=== PATIENT | female | born 2000 | race Hispanic/Latino ===

== ENCOUNTER 2022-05-17 07:47 | Inpatient (IN) | payer MEDICAID ==
[~2022-05-17] VITALS: Ht 157.5 cm; Wt 88.5 kg
[2022-05-17 09:25] LABS: HEMATOCRIT 33.4 % (36-48); MEAN CORPUSCULAR HGB CONC 31.7 g/dL (32.0-36.0); MEAN CORPUSCULAR VOLUME 69.4 fL (79-99); PLATELET COUNT (AUTO) 437 K/uL (130-400); RED BLOOD CELL COUNT(AUTO) 4.81 MIL/uL (4.00-5.50)
[2022-05-17] MEDS ORDERED: LACTATED RINGERS 1000ML 1,000 ML IV PRN (09:30)
[2022-05-17] MEDS ORDERED: PROMETHAZINE HCL 25 MG/ML 1ML AMPULE IM PRN (09:30)
[2022-05-17] MEDS ORDERED: MEPERIDINE-PF 50 MG/ML SYG IVP PRN (09:30)
[2022-05-17] MEDS ORDERED: OXYTOCIN-LR 20 UNITS/1000 ML 1,000 ML IV SCH ×3 (09:30→18:30)
[2022-05-17 11:59] LABS: RAPID PLASMA REAGIN NONREACTIVE (NONREACTIVE)
[2022-05-17 12:07] LABS: APPEARANCE,URINE CLEAR (CLEAR); BILIRUBIN,URINE NEGATIVE (NEGATIVE); COLOR,URINE COLORLESS (YELLOW); GLUCOSE, URINE (UA) NEGATIVE (NEGATIVE); KETONES,URINE NEGATIVE (NEGATIVE); LEUKOCYTE ESTERASE ,URINE 75 Leu/uL (NEGATIVE); NITRATE,URINE NEGATIVE (NEGATIVE); OCCULT BLOOD,URINE LARGE (NEGATIVE); PH,URINE 6.5 (5.0-8.0); PROTEIN,URINE NEGATIVE (NEGATIVE); UROBILINOGEN,URINE 0.2 mg/dL (0.2-1.0)
[2022-05-17 12:21] LABS: BACTERIA,URINE RARE /HPF (None Seen); RBC,URINE TNTC /HPF (0-1); SQUAMOUS EPITHELIAL CELL,UR MOD /HPF (0-2); WBC,URINE 26-50 /HPF (0-1)
[2022-05-17] MEDS ORDERED: LANOLIN 30GM OINTMENT TP PRN (18:30)
[2022-05-17] MEDS ORDERED: BENZOCAINE/LANOLIN/ALOE VERA 60 ML AEROSOL TP PRN (18:30)
[2022-05-17] MEDS ORDERED: WITCH HAZEL 1 PAD TP PRN (18:30)
[2022-05-17] MEDS ORDERED: DIPH,PERTUSS(ACELL),TET VAC/PF 0.5 ML VIAL IM PRN (18:30)
[2022-05-17] MEDS ORDERED: ACETAMINOPHEN 325 MG TAB PO PRN (18:30)
[2022-05-17] MEDS ORDERED: MEASLES/MUMPS/RUBELLA VACCINE, LIVE 0.5 ML/VIAL SQ PRN (18:30)
[2022-05-17] MEDS ORDERED: ACETAMINOPHEN WITH CODEINE 1 TAB TAB PO PRN (18:30)
[2022-05-17] MEDS: DOCUSATE SODIUM 100 MG CAP PO SCH (20:27)
[2022-05-17 21:00] VITALS: BP 130/72
[2022-05-17 23:40] VITALS: BP 129/59
[2022-05-18] MEDS: IBUPROFEN 600 MG TABLET PO PRN ×2 (00:49→08:12)
[2022-05-18 02:51] VITALS: BP 112/63
[2022-05-18 08:08] VITALS: BP 113/65
[2022-05-18] MEDS: DOCUSATE SODIUM 100 MG CAP PO SCH (08:11)
[2022-05-18 13:00] VITALS: BP 133/70
[2022-05-18 16:00] VITALS: BP 89/69
== END 2022-05-18 19:10 | disposition home or self-care (01) | DRG 560 ==
LOC: EDH 07:47 → OBSVTOIN 08:06 → LDH 08:06 → WSH 20:50
PROVIDERS: ADMIT Obstetrics & Gynecology; ATTEND Obstetrics & Gynecology
PROC: 10E0XZZ Delivery of Products of Conception, External Approach (ICD-10-PCS; principal; 2022-05-17)
PROC: 0W8NXZZ Division of Female Perineum, External Approach (ICD-10-PCS; 2022-05-17)
PROC: 0KQM0ZZ Repair Perineum Muscle, Open Approach (ICD-10-PCS; 2022-05-17)
DX: O80 Encounter for full-term uncomplicated delivery (principal); Z37.0 Single live birth; Z3A.39 39 weeks gestation of pregnancy
CPT/HCPCS: 36415; 81001; 85027; 86592; 86701; 86850; 86900; 86901; 87088; 87340; 87390; 90707; G0378; J2175; J2550; J2590; J7120

== ENCOUNTER 2023-05-19 12:36 | Observation (INO) | payer MEDICAID ==
[2023-05-19] MEDS ORDERED: LACTATED RINGERS 1000ML 1,000 ML IV SCH (13:00)
[2023-05-19 13:38] LABS: APPEARANCE,URINE CLOUDY (CLEAR); BILIRUBIN,URINE NEGATIVE (NEGATIVE); COLOR,URINE YELLOW (YELLOW); GLUCOSE, URINE (UA) NEGATIVE (NEGATIVE); KETONES,URINE 5 mg/dL (NEGATIVE); LEUKOCYTE ESTERASE ,URINE 500 Leu/uL (NEGATIVE); NITRATE,URINE NEGATIVE (NEGATIVE); OCCULT BLOOD,URINE SMALL (NEGATIVE); PROTEIN,URINE 20 mg/dL (NEGATIVE); UROBILINOGEN,URINE 0.2 mg/dL (0.2-1.0)
[2023-05-19 13:39] LABS: ADD UA MICROSCOPIC YES
[2023-05-19 13:43] LABS: BACTERIA,URINE RARE /HPF (None Seen); MUCUS,URINE RARE LPF (None Seen); SQUAMOUS EPITHELIAL CELL,UR MANY /HPF (0-2)
[2023-05-19 13:56] LABS: HEMATOCRIT 36.8 % (36-48); MEAN CORPUSCULAR HEMOGLOBIN 23.4 pg (27.0-33.0); MEAN CORPUSCULAR HGB CONC 31.8 g/dL (32.0-36.0); MEAN CORPUSCULAR VOLUME 73.6 fL (79-99); PLATELET COUNT (AUTO) 440 K/uL (130-400); WHITE BLOOD COUNT (AUTO) 15.6 K/uL (4.8-10.8)
[2023-05-19 14:11] LABS: ALBUMIN 2.5 g/dL (3.5-5.0); BILIRUBIN,TOTAL 0.2 mg/dL (0.2-1.0); CREATININE 0.5 mg/dL (0.5-1.5); POTASSIUM 3.7 mmol/L (3.5-5.1); TOTAL PROTEIN, SERUM 7.5 g/dL (6.0-8.3)
[2023-05-19] MEDS ORDERED: ONDANSETRON 4MG INJ IVP ONE (14:30)
[2023-05-19] MEDS ORDERED: FAMOTIDINE 20MG VIAL IV ONE (14:30)
[2023-05-19 14:34] LABS: EOSINOPHILS % (MANUAL) 1 % (1-6); LYMPHOCYTES % (MANUAL) 15 % (22-44); MAN.DIFF COMMENT-IMPRESSION MANUAL DIFFERENTIAL; MONOCYTES % (MANUAL) 2 % (2-9); PLATELET MORPHOLOGY COMMENT ADEQUATE; SEGMENTED NEUTROPHILS % 82 % (40-70); TOTAL CELLS COUNTED 100
== END 2023-05-19 17:25 | disposition home or self-care (01) ==
LOC: LDH 12:36
PROVIDERS: ADMIT Obstetrics & Gynecology; ATTEND Obstetrics & Gynecology
DX: O26.893 Other specified pregnancy related conditions, third trimester (principal); R10.13 Epigastric pain; M54.50 Low back pain, unspecified; Z3A.39 39 weeks gestation of pregnancy; Z79.899 Other long term (current) drug therapy
CPT/HCPCS: 96374; 96361; 80053; 85025; 87088; 82948; 81001; 36415; G0378 ×4; G0379; S0028; J2405; J3490